=== PATIENT | female | born 1995 | race Two or more races ===

== ENCOUNTER 2024-01-13 14:15 | Observation (INO) | payer BC ==
[~2024-01-13] VITALS: Ht 172.7 cm; Wt 113.4 kg
[2024-01-13] MEDS: LACTATED RINGER'S 1,000 ML IV ONE (17:03)
== END 2024-01-13 17:55 | disposition home or self-care (01) ==
LOC: LDRP 14:15 → UNDOADMOB 14:15 → LDRP 15:49 → UNDODISOB 17:55
PROVIDERS: ADMIT Obstetrics & Gynecology; ATTEND Obstetrics & Gynecology
DX: O60.03 Preterm labor without delivery, third trimester (principal); Z3A.36 36 weeks gestation of pregnancy
CPT/HCPCS: 59025; 76818; 81002; 94760; 96360; 96361; G0378

== ENCOUNTER 2024-01-19 14:53 | Observation (INO) | payer BC ==
[2024-01-19 17:31] LABS: Alanine Aminotransferase 20 U/L (7-40); Albumin 3.6 g/dL (3.2-4.8); Alkaline Phosphatase 138 U/L (46-116); Anion Gap 10 (5-15); Aspartate Aminotransferase 16 U/L (13-40); Calcium 9.2 mg/dL (8.7-10.4); Carbon Dioxide 20 mmol/L (20-30); Chloride 107 mmol/L (98-107); Glucose 70 mg/dL (74-106); Potassium 3.9 mmol/L (3.5-5.1); Sodium 137 mmol/L (136-145); Uric Acid 4.2 mg/dL (3.1-7.8)
[2024-01-19 17:32] LABS: Basophils # (auto) 0 10 ^3/uL (0-0.2); Basophils % (auto) 0.1 % (0.0-2.0); Bilirubin, Total 0.5 mg/dL (0.2-1.0); Monocytes # (auto) 0.5 10 ^3/uL (0-1.3); Neutrophils # (auto) 7.9 10 ^3/uL (1.6-8.6); Total Protein 6.3 g/dL (5.7-8.2)
[2024-01-19 17:35] LABS: Eosinophils # (auto) 0 10 ^3/uL (0-0.8); Eosinophils % (auto) 0.4 % (0.0-7.0); Hematocrit 33.8 % (36.0-46.0); Hemoglobin 11.1 g/dL (12.2-16.2); Lymphocytes # (auto) 1.7 10 ^3/uL (0.4-5.4); Mean Corpuscular Hemoglobin 26.4 pg (28.0-32.0); Mean Corpuscular Hgb Conc. 32.7 g/dL (32.0-36.0); Mean Corpuscular Volume 80.8 fL (80.0-100.0); Monocytes % (auto) 5.1 % (0.0-12.0); Neutrophils % (auto) 77.4 % (37.0-80.0); Nucleated Red Blood Cells % 0.1 %; Red Blood Cells 4.19 10^6/uL (4.0-5.20); Red Cell Distribution Width 16.6 % (11.8-14.3); White Blood Cell 10.2 10^3/uL (4.4-10.8)
[2024-01-19 17:43] LABS: BUN/Creatinine Ratio 9.1 (10.0-20.0); Blood Urea Nitrogen < 5 mg/dL (9-23)
[2024-01-19 17:49] LABS: Urine Amorphous Crystal FEW /hpf (None Seen); Urine Bacteria FEW /hpf (None Seen); Urine Blood Negative /uL (Negative); Urine Clarity Turbid (Clear); Urine Color Colorless (Yellow); Urine Protein, UAD Negative (Negative); Urine Specific Gravity 1.001 (1.001-1.035); Urine Urobilinogen Normal (Negative); Urine WBC 7 /hpf (0 - 5); Urine pH 6.5 (5.0-9.0)
[2024-01-19 17:50] LABS: INR 0.98 (0.9-1.15); Partial Thromboplastin Time 24.8 SEC (24.5-34.5); Prothrombin Time 10.4 sec (9.3-11.8)
[2024-01-19 18:02] LABS: Protein, Urine < 6.0 mg/dL (0.0-11.9)
[2024-01-19 18:05] LABS: Creatinine, Urine 10.78 mg/dL (30.0-125.0); Urine Protein/Creatinine Ratio 0.56
== END 2024-01-19 19:10 | disposition home or self-care (01) ==
LOC: LDRP 14:53
PROVIDERS: ADMIT Obstetrics & Gynecology; ATTEND Obstetrics & Gynecology
DX: O13.3 Gestational [pregnancy-induced] hypertension without significant proteinuria, third trimester (principal); Z3A.37 37 weeks gestation of pregnancy
CPT/HCPCS: 36415; 59025; 76818; 80053; 81001; 81002; 82570; 84156; 84550; 85025; 85610; 85730; G0378

== ENCOUNTER 2024-01-21 10:55 | Observation (INO) | payer BC ==
[2024-01-21 12:14] LABS: Urine Bacteria FEW /hpf (None Seen); Urine Blood TRACE /uL (Negative); Urine Clarity Turbid (Clear); Urine Color Colorless (Yellow); Urine Protein, UAD Negative (Negative); Urine Specific Gravity 1.002 (1.001-1.035); Urine Urobilinogen Normal (Negative); Urine WBC 104 /hpf (0 - 5); Urine pH 6.5 (5.0-9.0)
[2024-01-21] MEDS ORDERED: PREN-96 PO (12:20)
[2024-01-21 12:23] LABS: Protein, Urine 11.6 mg/dL (0.0-11.9)
[2024-01-21 12:23] LABS: Protein, Urine < 6.0 mg/dL (0.0-11.9)
[2024-01-21 12:26] LABS: Urine Protein/Creatinine Ratio 0.36
[2024-01-21 13:07] LABS: 24 Hr. Total Protein, Urine 330.6 mg/24 Hr (<149.1)
== END 2024-01-21 15:17 | disposition home or self-care (01) ==
LOC: LDRP 10:55 → UNDOADMOB 10:55 → LDRP 11:55
PROVIDERS: ADMIT Obstetrics & Gynecology; ATTEND Obstetrics & Gynecology
DX: O13.3 Gestational [pregnancy-induced] hypertension without significant proteinuria, third trimester (principal); Z3A.37 37 weeks gestation of pregnancy
CPT/HCPCS: 59025; 76818; 81001; 81002; 82570; 84156; 94760; G0378

== ENCOUNTER 2024-01-24 08:00 | Observation (INO) | payer BC ==
[~2024-01-24 08:00] MED LIST: PREN-96 PO
[2024-01-24 11:19] LABS: Protein, Urine 12.7 mg/dL (0.0-11.9)
[2024-01-24 11:22] LABS: Creatinine, Urine 90.89 mg/dL (30.0-125.0); Urine Protein/Creatinine Ratio 0.14
== END 2024-01-24 09:44 | disposition home or self-care (01) ==
LOC: LDRP 08:00
PROVIDERS: ADMIT Obstetrics & Gynecology; ATTEND Obstetrics & Gynecology
DX: O13.3 Gestational [pregnancy-induced] hypertension without significant proteinuria, third trimester (principal); O26.893 Other specified pregnancy related conditions, third trimester; R51.9 Headache, unspecified; Z3A.37 37 weeks gestation of pregnancy; Z79.899 Other long term (current) drug therapy
CPT/HCPCS: 59025; 76818; 81002; 82570; 84156; 94760; G0378

== ENCOUNTER 2024-01-26 12:54 | Observation (INO) | payer BC ==
[2024-01-26] MEDS ORDERED: FAMO20TA10 PO (16:15)
== END 2024-01-26 15:45 | disposition home or self-care (01) ==
LOC: LDRP 12:54
PROVIDERS: ADMIT Obstetrics & Gynecology; ATTEND Obstetrics & Gynecology
DX: O13.3 Gestational [pregnancy-induced] hypertension without significant proteinuria, third trimester (principal); O62.9 Abnormality of forces of labor, unspecified; Z3A.38 38 weeks gestation of pregnancy
CPT/HCPCS: 59025; 76818; 81002; 94760; G0378

== ENCOUNTER 2024-01-29 10:54 | Observation (INO) | payer BC ==
[~2024-01-29 10:54] MED LIST changes: +FAMO20TA10 PO
[2024-01-29 12:11] LABS: Basophils # (auto) 0 10 ^3/uL (0-0.2); Basophils % (auto) 0.1 % (0.0-2.0); Eosinophils # (auto) 0.1 10 ^3/uL (0-0.8); Eosinophils % (auto) 0.6 % (0.0-7.0); Hematocrit 33.8 % (36.0-46.0); Hemoglobin 11.2 g/dL (12.2-16.2); Lymphocytes # (auto) 1.6 10 ^3/uL (0.4-5.4); Mean Corpuscular Hgb Conc. 33.2 g/dL (32.0-36.0); Mean Corpuscular Volume 81.4 fL (80.0-100.0); Monocytes # (auto) 0.6 10 ^3/uL (0-1.3); Monocytes % (auto) 5.5 % (0.0-12.0); Neutrophils % (auto) 77.8 % (37.0-80.0); Nucleated Red Blood Cells % 0.1 %; Red Blood Cells 4.16 10^6/uL (4.0-5.20); Red Cell Distribution Width 16.8 % (11.8-14.3); White Blood Cell 10.3 10^3/uL (4.4-10.8)
[2024-01-29 12:12] LABS: Urine Bacteria FEW /hpf (None Seen); Urine Blood 1+ /uL (Negative); Urine Color Yellow (Yellow); Urine Mucus FEW (None Seen); Urine Protein, UAD 1+ (Negative); Urine Specific Gravity 1.031 (1.001-1.035); Urine Urobilinogen Normal (Negative); Urine WBC 16 /hpf (0 - 5)
[2024-01-29 12:13] LABS: Urine Clarity Hazy (Clear)
[2024-01-29 12:21] LABS: Protein, Urine 70.1 mg/dL (0.0-11.9)
[2024-01-29 12:28] LABS: Alanine Aminotransferase 18 U/L (7-40); Albumin 3.5 g/dL (3.2-4.8); Alkaline Phosphatase 145 U/L (46-116); Anion Gap 8 (5-15); Aspartate Aminotransferase 15 U/L (13-40); BUN/Creatinine Ratio 7.7 (10.0-20.0); Blood Urea Nitrogen 5 mg/dL (9-23); Calcium 9.2 mg/dL (8.7-10.4); Carbon Dioxide 20 mmol/L (20-30); Chloride 108 mmol/L (98-107); Glucose 76 mg/dL (74-106); Potassium 4.1 mmol/L (3.5-5.1); Sodium 136 mmol/L (136-145); Uric Acid 4.4 mg/dL (3.1-7.8)
[2024-01-29 12:29] LABS: Bilirubin, Total 0.4 mg/dL (0.2-1.0); Total Protein 6.7 g/dL (5.7-8.2)
[2024-01-29 12:32] LABS: Creatinine, Urine 278.31 mg/dL (30.0-125.0); Urine Protein/Creatinine Ratio 0.25
[2024-01-29 12:38] LABS: INR 0.97 (0.9-1.15); Partial Thromboplastin Time 24.5 SEC (24.5-34.5); Prothrombin Time 10.3 sec (9.3-11.8)
== END 2024-01-29 14:02 | disposition home or self-care (01) ==
LOC: LDRP 10:54
PROVIDERS: ADMIT Obstetrics & Gynecology; ATTEND Obstetrics & Gynecology
DX: O13.3 Gestational [pregnancy-induced] hypertension without significant proteinuria, third trimester (principal); O26.893 Other specified pregnancy related conditions, third trimester; R12 Heartburn; Z3A.38 38 weeks gestation of pregnancy
CPT/HCPCS: 36415; 59025; 76818; 80053; 81001; 81002; 82570; 84156; 84550; 85025; 85379; 85384; 85610; 85730; 94760; G0378

== ENCOUNTER 2024-02-02 14:52 | Inpatient (IN) | payer BC ==
[~2024-02-02] VITALS: Ht 172.7 cm; Wt 113.4 kg
[2024-02-02 00:20] VITALS: O2SAT 98
[2024-02-02] MEDS ORDERED: LIDOCAINE 2%HCL (LOCAL ANESTH.) INJ 20ML MDV IJ PRN (16:30)
[2024-02-02] MEDS ORDERED: LACTATED RINGER'S 1,000 ML IV SCH (16:30)
[2024-02-02 17:01] LABS: Basophils # (auto) 0 10 ^3/uL (0-0.2); Basophils % (auto) 0.2 % (0.0-2.0); Eosinophils # (auto) 0 10 ^3/uL (0-0.8); Eosinophils % (auto) 0.4 % (0.0-7.0); Hematocrit 33.7 % (36.0-46.0); Hemoglobin 11.2 g/dL (12.2-16.2); Lymphocytes % (auto) 20.1 % (10.0-50.0); Mean Corpuscular Hemoglobin 27.1 pg (28.0-32.0); Mean Corpuscular Hgb Conc. 33.1 g/dL (32.0-36.0); Mean Corpuscular Volume 81.7 fL (80.0-100.0); Monocytes # (auto) 0.7 10 ^3/uL (0-1.3); Neutrophils # (auto) 7.3 10 ^3/uL (1.6-8.6); Neutrophils % (auto) 72.3 % (37.0-80.0); Nucleated Red Blood Cells % 0.1 %; Platelet Count (auto) 267 10^3/uL (140-450); Red Blood Cells 4.13 10^6/uL (4.0-5.20); Red Cell Distribution Width 17.4 % (11.8-14.3); White Blood Cell 10.1 10^3/uL (4.4-10.8)
[2024-02-02 17:09] LABS: Urine Bacteria FEW /hpf (None Seen); Urine Blood Negative /uL (Negative); Urine Clarity Turbid (Clear); Urine Color Colorless (Yellow); Urine Protein, UAD Negative (Negative); Urine Specific Gravity 1.005 (1.001-1.035); Urine Urobilinogen Normal (Negative); Urine WBC 10 /hpf (0 - 5)
[2024-02-02 17:16] LABS: INR 0.97 (0.9-1.15); Partial Thromboplastin Time 24.1 SEC (24.5-34.5); Prothrombin Time 10.3 sec (9.3-11.8)
[2024-02-02 17:18] LABS: Amphetamine Screen, Urine Neg (NEGATIVE); Barbiturate Scree,Urine Neg (NEGATIVE); Benzodiazephine Screen, Urine Neg (NEGATIVE); Cannabinoid Screen, Urine Neg (NEGATIVE); Cocaine Screen, Urine Neg (NEGATIVE); Opiate Scree,Urine Neg (NEGATIVE); Phencyclidine Screen, Urine Neg (NEGATIVE)
[2024-02-02 17:20] LABS: Alanine Aminotransferase 13 U/L (7-40); Albumin 3.8 g/dL (3.2-4.8); Alkaline Phosphatase 156 U/L (46-116); Anion Gap 7 (5-15); Aspartate Aminotransferase 17 U/L (13-40); Bilirubin, Total 0.5 mg/dL (0.2-1.0); Blood Urea Nitrogen 6 mg/dL (9-23); Calcium 9.7 mg/dL (8.7-10.4); Carbon Dioxide 23 mmol/L (20-30); Chloride 108 mmol/L (98-107); Glucose 72 mg/dL (74-106); Potassium 4.2 mmol/L (3.5-5.1); Sodium 138 mmol/L (136-145); Total Protein 6.6 g/dL (5.7-8.2)
[2024-02-02 17:27] LABS: Protein, Urine < 6.0 mg/dL (0.0-11.9)
[2024-02-02 17:29] LABS: Creatinine, Urine 37.48 mg/dL (30.0-125.0); Urine Protein/Creatinine Ratio 0.16
[2024-02-02 17:31] LABS: Uric Acid 4.9 mg/dL (3.1-7.8)
[2024-02-02] MEDS ORDERED: miSOPROStol 50 MCG per PRE-CUT 1/2 TAB PO PRN (18:45)
[2024-02-02] MEDS ORDERED: ACETAMINOPHEN 500 MG TAB PO PRN (19:00)
[2024-02-02] MEDS: miSOPROStol 50 MCG per PRE-CUT 1/2 TAB PO PRN (19:30)
[2024-02-02] MEDS: TERBUTALINE SULFATE 1 MG/ML 1ML VIAL SC ONE (22:21)
[2024-02-02] MEDS ORDERED: TERBUTALINE SULFATE 1 MG/ML 1ML VIAL SC SCH (22:30)
[2024-02-02] MEDS: ceFAZolin 2 GM/D5W50ml 50 ML IV ONE (22:30)
[2024-02-02] MEDS ORDERED: DexAMETHasone SOD PHOS 10MG/1ML VIAL INJ ONE (22:48)
[2024-02-02] MEDS ORDERED: ONDANSETRON HCL 4 MG/2 ML VIAL ONE (22:48)
[2024-02-02] MEDS ORDERED: oxyTOCIN 10 UNIT/ML 10ML VIAL ONE (22:48)
[2024-02-02] MEDS ORDERED: fentaNYL CITRATE 100 MCG/2 ML VL ONE (22:49)
[2024-02-02] MEDS ORDERED: MORPHINE SULF PF 5 MG/10 ML VIAL ONE (22:49)
[2024-02-02] MEDS ORDERED: SODIUM CHLORIDE LOCK 10 ML ONE ×2 (22:50→23:26)
[2024-02-02] MEDS ORDERED: ePHEDrine SULFATE 50 MG/ML AMP ONE (22:50)
[2024-02-02] MEDS: ceFAZolin 1GM VL ONE (23:01)
[2024-02-02] MEDS ORDERED: PHENYLEPHRINE HCL 10 MG/ML VL ONE (23:26)
[2024-02-03] VITALS (19 sets, daily range): BP systolic 97–132; BP diastolic 51–72; PULSE 52–104; RESP 14–20; TEMP 97.8–98.6; O2SAT 94–99
[2024-02-03] MEDS ORDERED: KETOROLAC TROMETH 30 MG/ML 1ML VIAL IV PRN (01:45)
[2024-02-03] MEDS ORDERED: ACETAMINOPHEN IV 1000 MG/100ML (10MG/ML) IV SCH (01:45)
[2024-02-03] MEDS: METOCLOPRAMIDE HCL 5MG/ml INJ 2ml VIAL IV PRN (02:17)
[2024-02-03] MEDS: diphenhdrAMINE HCL 50 MG/1 ML VL IV PRN (03:46)
[2024-02-03] MEDS: LACTATED RINGER'S 1,000 ML IV SCH (04:47)
[2024-02-03 07:40] LABS: Basophils # (auto) 0 10 ^3/uL (0-0.2); Basophils % (auto) 0.1 % (0.0-2.0); Eosinophils # (auto) 0 10 ^3/uL (0-0.8); Hemoglobin 10.8 g/dL (12.2-16.2); Lymphocytes % (auto) 5.5 % (10.0-50.0); Mean Corpuscular Hemoglobin 25.9 pg (28.0-32.0); Monocytes # (auto) 0.3 10 ^3/uL (0-1.3); Monocytes % (auto) 1.6 % (0.0-12.0); Neutrophils % (auto) 92.8 % (37.0-80.0)
[2024-02-03 07:42] LABS: Hematocrit 33.9 % (36.0-46.0); Mean Corpuscular Hgb Conc. 31.8 g/dL (32.0-36.0); Mean Corpuscular Volume 81.3 fL (80.0-100.0); Neutrophils # (auto) 16.9 10 ^3/uL (1.6-8.6); Platelet Count (auto) 250 10^3/uL (140-450); Red Blood Cells 4.16 10^6/uL (4.0-5.20); Red Cell Distribution Width 16.8 % (11.8-14.3); White Blood Cell 18.2 10^3/uL (4.4-10.8)
[2024-02-03] MEDS ORDERED: DOCU-94 PO (07:42)
[2024-02-03] MEDS ORDERED: HYDR-4902 PO (07:42)
[2024-02-03] MEDS ORDERED: IBUP-1456 PO (07:42)
[2024-02-03] MEDS: ceFAZolin 1GM/50ML 50 ML IV SCH (08:16)
[2024-02-03] MEDS: LACT. RINGERS/OXYTOCIN 20UNITS 500 ML IV ONE ×2 (08:52)
[2024-02-03] MEDS: ACETAMINOPHEN IV 1000 MG/100ML (10MG/ML) IV PRN (14:38)
[2024-02-03] MEDS: DERMOPLAST 60ML BOTTLE TOP PRN (14:58)
[2024-02-03] MEDS: PHISODERM TOP SOLN 240ML BTL TOP PRN (14:58)
[2024-02-03] MEDS: WITCH HAZEL-GLYCERIN PAD TOP PRN (14:58)
[2024-02-04] MEDS ORDERED: BISACODYL 10 MG RECT SUPP PR PRN (00:30)
[2024-02-04] MEDS ORDERED: FER325T PO (00:54)
[2024-02-04] MEDS ORDERED: IBUP-1456 PO (00:54)
[2024-02-04 03:12] VITALS: BP 121/71; PULSE 72; RESP 16; TEMP 98.1; O2SAT 96
[2024-02-04] MEDS: IBUPROFEN 800 MG TAB PO PRN (03:22)
[2024-02-04] MEDS: SIMETHICONE 80 MG CHEWABLE TABLET PO SCH (05:59)
[2024-02-04 06:06] LABS: RPR Non Reactive (Non Reactive)
[2024-02-04 06:50] VITALS: BP 106/57; PULSE 58; RESP 16; TEMP 98.6; O2SAT 98
[2024-02-04] MEDS ORDERED: DOCUSATE CALCIUM 240 MG CAP PO SCH (10:00)
[2024-02-04] MEDS: DOCUSATE SOD 100 MG CAP PO SCH (10:52)
[2024-02-04] MEDS: FERROUS SULFATE 325mg EC TAB PO SCH (10:52)
[2024-02-04] MEDS: HYDROcodone-ACET 5/325MG TAB PO PRN ×2 (10:53→22:40)
[2024-02-04 11:00] VITALS: BP 130/70; PULSE 94; RESP 15; TEMP 97.7; O2SAT 95
[2024-02-04 15:08] VITALS: BP 120/59; PULSE 85; RESP 16; TEMP 98.6; O2SAT 98
[2024-02-04 19:20] VITALS: BP 119/61; PULSE 77; RESP 16; TEMP 98.3; O2SAT 98
[2024-02-04 22:41] VITALS: BP 130/71; PULSE 85; RESP 16; TEMP 98; O2SAT 98
[2024-02-05 03:00] VITALS: BP 117/59; PULSE 75; RESP 16; TEMP 98.2; O2SAT 97
[2024-02-05] MEDS: TETANUS-DIPTH-ACEL PERTUSSIS 0.5ML SYR Tdap IM ONE (04:44)
[2024-02-05 07:20] VITALS: BP 130/71; PULSE 86; RESP 16; TEMP 98.4; O2SAT 97
== END 2024-02-05 09:28 | disposition home or self-care (01) | DRG 787 ==
LOC: LDRP 14:52 → OBSVTOIN 16:20 → LDRP 02-03 04:16
PROVIDERS: ADMIT Obstetrics & Gynecology; ATTEND Obstetrics & Gynecology
PROC: 10D00Z1 Extraction of Products of Conception, Low, Open Approach (ICD-10-PCS; principal; 2024-02-02 23:09)
DX: O14.94 Unspecified pre-eclampsia, complicating childbirth (principal); D62 Acute posthemorrhagic anemia; O69.81X0 Labor and delivery complicated by cord around neck, without compression, not applicable or unspecified; O99.214 Obesity complicating childbirth; O76 Abnormality in fetal heart rate and rhythm complicating labor and delivery; Z37.0 Single live birth; Z3A.39 39 weeks gestation of pregnancy; E66.01 Morbid (severe) obesity due to excess calories; O90.81 Anemia of the puerperium; T47.1X5A Adverse effect of other antacids and anti-gastric-secretion drugs, initial encounter; Y92.239 Unspecified place in hospital as the place of occurrence of the external cause
CPT/HCPCS: 36415; 59025; 76818; 80053; 80307; 81001; 81002; 82570; 84156; 84550; 85025; 85610; 85730; 86592; 86803; 86850; 86900; 86901; 90715; 94760; 94762; 96360; 96361; 96372; 96374; 96375; G0378; J0131; J0690; J1100; J2405; J2590

== ENCOUNTER 2024-07-03 00:50 | Emergency (ER) | payer BC ==
[~2024-07-03] VITALS: Ht 172.7 cm; Wt 113.0 kg
[~2024-07-03 00:50] MED LIST changes: +DOCU-94 PO; -FAMO20TA10 PO; +FER325T PO; +HYDR-4902 PO; +IBUP-1456 PO
--- NOTE | 2024-07-03 01:09 | ECG ---
[facility] Test Date: 2024-07-03 Test Time: 01:03:31 Pat Name: DANNIE TALBERT Department: ER Room: Gender: F Hydrologist: VANCE : 1995 Requested By: NISHA GUDINO Order Number: [id number] Reading MD: Yunier Doyle Measurements Intervals [place] Rate: 77 P: 58 AL: 141 QRS: 54 QRSD: 96 T: 7 QT: 384 QTc: 435 Interpretive Statements Sinus rhythm Electronically Signed On 07-10-2024 14:52:20 PST by Yunier Doyle Please click the below link to view image of tracing.
--- NOTE | 2024-07-03 01:49 | ED.PDOC ---
History of Present Illness HPI Comments 28-year-old female who came to emergency room due to dizziness. Patient denies any medical problems. States she was painting at home, when she developed sudden onset dizziness. Patient went to the bathroom, having multiple bouts of nausea and vomiting and diarrhea. Persistence of dizziness, describe a spinning, prompted patient to come to the emergency room Chief Complaint: Dizziness Time Seen by MD: 01:48 Reviewed Notes: Nurses Notes Allergies: Coded Allergies: NO KNOWN ALLERGIES (Unverified , 11/16/15) Home Meds Active Scripts Ferrous Sulfate (Ferrous Sulfate) 325 Mg Tab, 325 MG PO EOD for 30 Days, #30 TAB 3 Refills Prov:FRANCO SAWANTRUBEN [facility] 02/04/24 Ibuprofen (Ibuprofen) 800 Mg Tab, 800 MG PO TID PRN for 20 Days, #60 TAB Prov:SAVANAELVIEGREGORIO [facility] 02/04/24 Hydrocodone-Acetaminophen (Hydrocodone Bitartrate/AC 5-325 mg) 1 Tab Tab, 1 TAB PO Q6HPRN PRN for 7 Days, #28 TAB Prov:ROSANNA PORTILLO 02/03/24 Docusate Sodium (Colace) 100 Mg Cap, 1 CAP PO BID, #60 CAP 2 Refills Prov:ROSANNA PORTILLO 02/03/24 Reported Medications Vit W/ Ferrous Fumara ( One Daily) Daily Tab, 1 TAB PO DAILY, #90 TAB 3 Refills 01/21/24 Information Source: Patient Mode of Arrival: Ambulatory Severity: Moderate Timing: Hours Duration: Intermittent Review of Systems REVIEW OF SYSTEMS: No fever, no chills, or fatigue HEENT: No sore throat, no earache, no congestion, no neck pain. Cardiac: No chest pain. No palpitations. Lungs: No shortness of breath, no cough. GI:(+) nausea, vomiting, diarrhea, no constipation, no abdominal pain : No dysuria, frequency, or urgency. No hematuria. Musculoskeletal: No joint pain , no joint swelling, no extremity edema. Skin: No rash, no itching. Neuro: No headache, (+) dizziness, no weakness Vital Signs Vital Signs Date Time Temp Pulse Resp B/P (MAP) Pulse Ox O2 Delivery O2 Flow Rate FiO2 07/03/24 05:56 87 14 110/72 (85) 98 07/03/24 05:03 Room Air* 0 21 07/03/24 05:01 98.0 98.0 Physical Exam General: Awake, alert and oriented. No acute distress. Skin: Skin in warm, dry and intact. Appropriate color for ethnicity. Nailbeds pink with no cyanosis. HEENT: The head is normocephalic and atraumatic. Conjunctivae are clear without exudates or hemorrhage. Sclera is non-icteric. EOM are intact. Right nystagmus noted. Eyelids are normal in appearance without swelling or lesions. Oral mucosa is pink and moist Neck: The neck is supple with normal range of motion. No JVD. Cardiac: Heart rate and rhythm are normal. No murmurs, gallops, or rubs are auscultated. Respiratory: No signs of respiratory distress. Lung sounds are clear in all lobes bilaterally without rales, ronchi, or wheezes. Abdominal: Abdomen is soft, non-tender without distention. Bowel sounds are present and normoactive in all four quadrants. Extremities: Upper and lower extremities are atraumatic in appearance without deformity or edema. Neurological: The patient is awake, alert and oriented to person, place, and time with normal speech. Speech is clear. There is no facial asymmetry. Normal [id number] test. Romberg is negative. Psychiatric: Appropriate mood and affect. Good judgement and insight. No visual or auditory hallucinations. Past Medical History PAST MEDICAL HISTORY: Denies Surgical History: Denies all surgeries BOOKING CLERK History: No Pertinent BOOKING CLERK History Family History Family History: Reviewed,noncontributory to illness Social History Smoker: Non-Smoker Alcohol: Denies ETOH Use Drugs: Denies Drug Use Lives In: Home Was a procedure done? Was a procedure done?: No EKG EKG : Comments Independent interpretation: Sinus rhythm at a rate of 77, no STEMI. Differential Dx Considerations may include: Anemia. Electrolyte imbalance. Vertigo. Gastroenteritis. Dehydration X-Ray, Labs, Meds, VS Vital Signs Date Time Temp Pulse Resp B/P (MAP) Pulse Ox O2 Delivery O2 Flow Rate FiO2 07/03/24 05:56 87 14 110/72 (85) 98 07/03/24 05:03 90 14 97 Room Air* 0 21 07/03/24 05:01 98.0 90 14 115/67 (83) 97 98.0 07/03/24 01:03 77 07/03/24 00:58 98.3 83 20 130/91 (104) 99 Lab Test 07/03/24 02:06 07/03/24 00:57 Range/Units White Blood Count 10.7 4.4-10.8 10^3/uL Red Blood Count 4.38 4.0-5.20 10^6/uL Hemoglobin 12.6 12.2-16.2 g/dL Hematocrit 37.1 36.0-46.0 % Mean Corpuscular Volume 84.7 80.0-100.0 fL Mean Corpuscular Hemoglobin 28.8 28.0-32.0 pg Mean Corpuscular Hemoglobin Concent 34.0 32.0-36.0 g/dL Red Cell Distribution Width 14.1 11.8-14.3 % Platelet Count 334 140-450 10^3/uL Mean Platelet Volume 7.8 6.9-10.8 fL Neutrophils (%) (Auto) 81.1 H 37.0-80.0 % Lymphocytes (%) (Auto) 14.5 10.0-50.0 % Monocytes (%) (Auto) 3.5 0.0-12.0 % Eosinophils (%) (Auto) 0.5 0.0-7.0 % Basophils (%) (Auto) 0.4 0.0-2.0 % Neutrophils # (Auto) 8.7 H 1.6-8.6 10 ^3/uL Lymphocytes # (Auto) 1.6 0.4-5.4 10 ^3/uL Monocytes # (Auto) 0.4 0-1.3 10 ^3/uL Eosinophils # (Auto) 0.1 0-0.8 10 ^3/uL Basophils # (Auto) 0 0-0.2 10 ^3/uL Nucleated Red Blood Cells 0.0 % Sodium Level 139 136-145 mmol/L Potassium Level 4.2 3.5-5.1 mmol/L Chloride Level 107 98-107 mmol/L Carbon Dioxide Level 26 20-31 mmol/L Anion Gap 6 5-15 Blood Urea Nitrogen 10 9-23 mg/dL Creatinine 0.81 0.550-1.02 mg/dL Glomerular Filtration Rate Calc 100 >90 mL/min BUN/Creatinine Ratio 12.3 10.0-20.0 Serum Glucose 126 H 74-106 mg/dL Calcium Level 10.0 8.7-10.4 mg/dL Magnesium Level 2.0 1.6-2.6 mg/dL Total Bilirubin 0.5 0.2-1.0 mg/dL Aspartate Amino Transferase (AST) 22 13-40 U/L Alanine Aminotransferase (ALT) 51 H 7-40 U/L Alkaline Phosphatase 110 46-116 U/L Troponin I High Sensitivity < 3 L </=34 ng/L Total Protein 7.7 5.7-8.2 g/dL Albumin 4.6 3.2-4.8 g/dL Lipase 57 H 12-53 U/L POC Glucose 129 H 70-106 mg/dl Current Medications Medications (Trade) Dose Ordered Sig/Flora Route Start Time Stop Time Status Last Admin Meclizine HCl (Antivert Tablet) 50 mg ONCE ONCE PO 07/03/24 01:45 07/03/24 01:47 DC 07/03/24 04:54 Ondansetron HCl (Zofran) 4 mg ONCE ONCE IV 07/03/24 02:45 07/03/24 02:46 DC 07/03/24 04:54 Sodium Chloride 1,000 ml @ 1,000 mls/hr Q1H ONCE IV 07/03/24 02:45 07/03/24 03:44 DC 07/03/24 04:54 Time of 1ST Reevaluation: 01:45 Reevaluation 1ST: Unchanged Patient Education/Counseling: Diagnosis, Treatment Family Education/Counseling: No Family Present Departure 1 Departure Time of Disposition: 05:23 Impression: Primary Impression: Dizziness Additional Impression: Vertigo Disposition: 01 HOME / SELF CARE / HOMELESS Condition: Stable Additional Instructions: ED DISCHARGE INSTRUCTIONS Instructions: Please read all instructions provided in this packet carefully. Although you have been discharged from the Emergency Department, this does not mean that you have a "clean bill of health". No definitive diagnosis for your symptoms has been made today. It is possible that you are in the process of developing a serious illness. This is why you must return to the ED without fail if any new or worsening symptoms (especially if your symptoms include chest pain, trouble breathing, abdominal pain, fever, headache, confusion, trouble seeing, or trouble walking) It is also very important that you see a primary care doctor within the next 3-5 days to follow up. If you are unable to get an appointment, return to the ED for re-evaluation. Vertigo: Care Instructions Overview Vertigo is the feeling that you or your surroundings are moving when there is no actual movement. It is often described as a feeling of spinning, whirling, falling, or tilting. Vertigo may make you vomit or feel nauseated. You may have trouble standing or walking and may lose your balance. Vertigo is often related to an inner ear problem, but it can have other more serious causes. If vertigo continues, you may need more tests to find its cause. Follow-up care is a smith part of your treatment and safety. Be sure to make and go to all appointments, and call your doctor if you are having problems. It's also a good idea to know your test results and keep a list of the medicines you take. How can you care for yourself at home? Do not lie flat on your back. Prop yourself up slightly. This may reduce the spinning feeling. Keep your eyes open. Move slowly to decrease your chance of falling. If your doctor recommends medicine, take it exactly as directed. Do not drive while you are having vertigo. Certain exercises, called Hernandez-Daroff exercises, can help decrease vertigo. To do Hernandez-Daroff exercises: Sit on the edge of a bed or sofa and quickly lie down on the side that causes the worst vertigo. Lie on your side with your ear down. Stay in this position for at least 30 seconds or until the vertigo goes away. Sit up. If this causes vertigo, wait for it to stop. Repeat the procedure on the other side. Repeat this 10 times. Do these exercises 2 times a day until the vertigo is gone. When should you call for help? Call 911 anytime you think you may need emergency care. For example, call if: You passed out (lost consciousness). You have sudden dizziness that doesn't get better. You have dizziness along with symptoms of a heart attack. These may include: Chest pain or pressure, or a strange feeling in the chest. Sweating. Shortness of breath. Nausea or vomiting. Pain, pressure, or a strange feeling in the back, neck, jaw, or upper belly or in one or both shoulders or arms. Lightheadedness or sudden weakness. A fast or irregular heartbeat. You have symptoms of a stroke. These may include: Sudden numbness, tingling, weakness, or loss of movement in your face, arm, or leg, especially on only one side of your body. Sudden vision changes. Sudden trouble speaking. Sudden confusion or trouble understanding simple statements. Sudden problems with walking or balance. A sudden, severe headache that is different from past headaches. Call your doctor now or seek immediate medical care if: Vertigo occurs with a fever, a headache, or ringing in your ears. You have new or increased nausea and vomiting. Your vertigo gets worse or happens more often. Watch closely for changes in your health, and be sure to contact your doctor if: You do not get better as expected. Credits for Vertigo: Care Instructions Current as of: April 17, 2024 Author: [employer] Staff Clinical Review Board All [employer] education is reviewed by a team that includes physicians, nurses, advanced practitioners, registered dieticians, and other healthcare professionals. Comments 28-year-old female who presented to the emergency department with vertigo symptoms. Patient reports significant improvement of her symptoms during treatment in the emergency department. Lab and imaging results, not urgently actionable. Patient felt stable for discharge home to follow up with primary care provider for further evaluation. I reviewed the following notes from the pt's past medical encounters: N/A The following tests were ordered, and results were reviewed by me: (See diagnostic results section) The following test were independently interpreted by me: EKG Additional information was gathered from interviewing the following independent historians: (N/A) I reviewed and agreed with the following test results read by other providers: N/A I discussed treatments and results with medical personnel and: N/A Decision regarding hospitalization or escalation of hospital level of care: Risks and benefits of admission for further treatment of patient's condition was considered however due to patient's stable condition patient will be discharged to follow up closely or return to care for worsening of condition or inability to follow up. Critical Care Note Critical Care Time?: No Stability Stability form required: No Heart Score Heart Score: Heart Score Response (Comments) Value History N/A 0 EKG N/A 0 Age N/A 0 Risk Factors N/A 0 Troponin N/A 0 Total 0 I personally scribed for NISHA GUDINO MD ([email or web address]) on 07/03/24 at 01:49. Electronically submitted by Han Barbosa ([email or web address]). NISHA GUDINO MD Jul 03, 2024 01:49
[2024-07-03 02:44] LABS: Anion Gap 6 (5-15); BUN/Creatinine Ratio 12.3 (10.0-20.0); Basophils # (auto) 0 10 ^3/uL (0-0.2); Basophils % (auto) 0.4 % (0.0-2.0); Eosinophils # (auto) 0.1 10 ^3/uL (0-0.8); Eosinophils % (auto) 0.5 % (0.0-7.0); Hematocrit 37.1 % (36.0-46.0); Hemoglobin 12.6 g/dL (12.2-16.2); Lymphocytes # (auto) 1.6 10 ^3/uL (0.4-5.4); Lymphocytes % (auto) 14.5 % (10.0-50.0); Mean Corpuscular Hemoglobin 28.8 pg (28.0-32.0); Mean Corpuscular Volume 84.7 fL (80.0-100.0); Monocytes # (auto) 0.4 10 ^3/uL (0-1.3); Monocytes % (auto) 3.5 % (0.0-12.0); Neutrophils # (auto) 8.7 10 ^3/uL (1.6-8.6); Neutrophils % (auto) 81.1 % (37.0-80.0); Platelet Count (auto) 334 10^3/uL (140-450); Potassium 4.2 mmol/L (3.5-5.1); Red Blood Cells 4.38 10^6/uL (4.0-5.20); Red Cell Distribution Width 14.1 % (11.8-14.3); Sodium 139 mmol/L (136-145); White Blood Cell 10.7 10^3/uL (4.4-10.8)
[2024-07-03 02:50] LABS: Alanine Aminotransferase 51 U/L (7-40); Albumin 4.6 g/dL (3.2-4.8); Alkaline Phosphatase 110 U/L (46-116); Aspartate Aminotransferase 22 U/L (13-40); Bilirubin, Total 0.5 mg/dL (0.2-1.0); Blood Urea Nitrogen 10 mg/dL (9-23); Carbon Dioxide 26 mmol/L (20-31); Chloride 107 mmol/L (98-107); Glucose 126 mg/dL (74-106); Lipase 57 U/L (12-53); Total Protein 7.7 g/dL (5.7-8.2)
[2024-07-03] MEDS: IOHEXOL 350 MG/ML 100ML IJ ONE (04:18)
[2024-07-03] MEDS: ONDANSETRON HCL 4 MG/2 ML VIAL IV ONE (04:54)
[2024-07-03] MEDS: MECLIZINE HCL 25 MG TAB PO ONE (04:54)
[2024-07-03] MEDS: SODIUM CHLORIDE 0.9% 1,000 ML IV ONE (04:54)
[2024-07-03 05:01] VITALS: TEMP 98
[2024-07-03 05:03] VITALS: PULSE 90; RESP 14; O2SAT 97
--- NOTE | 2024-07-03 05:46 | DVH ---
INDICATION: Vertigo sudden onset COMPARISON: None TECHNIQUE: CTA head without and with intravenous contrast. CTA neck with intravenous contrast. 3D image postprocessing was performed on a dedicated workstation and images were used for interpretation and reporting. Radiation Dose Information: CT Dose: CTDI volume is 23 mGy. Dose-length product is 14 19 mGy*cm FINDINGS: CT head: There is no evidence of acute intracranial hemorrhage, extra-axial collection, mass effect, midline s hift, herniation or hydrocephalus. The ventricles, sulci and cisterns are age appropriate. The ortiz -white differentiation is intact. The visualized paranasal sinuses and mastoid air cells are clear. The surrounding soft tissues and osseous structures are unremarkable. CTA head: There is normal enhancement of the visualized distal internal carotid, anterior and middle cerebral a rteries. There is a normal anterior communicating artery complex. There are bilateral posterior com municating arteries. The vertebral, basilar, cerebellar and posterior cerebral arteries are within n ormal limits. The early parenchymal enhancement is grossly unremarkable. The visualized intracrania l venous structures are grossly unremarkable. CTA neck: The visualized thoracic aortic arch and proximal great vessels are unremarkable. The left common, internal and external carotid arteries are within normal limits. The right common, internal and external carotid arteries are within normal limits. The cervical segments of the right and left vertebral arteries are within normal limits. The limited visualized lung apices are clear. The surrounding soft tissues and osseous structures ar e otherwise unremarkable. IMPRESSION: No evidence of acute intracranial hemorrhage, mass effect or hydrocephalus. No evidence of hemodynamically significant intracranial stenosis, proximal occlusion or aneurysm. No evidence of hemodynamically significant cervical stenosis or dissection. All CT scans at this medical facility are performed using dose modulation techniques as appropriate t o a performed exam including the following: Automated exposure control was utilized; adjustment of th e MA and/or KV according to patient size; and use of iterative reconstruction technique.
[2024-07-03 05:56] VITALS: BP 110/72; PULSE 87; RESP 14; O2SAT 98
[2024-07-03] MEDS ORDERED: ALBUTEROL SULF 2.5 MG/0.5ML(0.5%) NEB SOLN ONE (11:27)
[2024-07-03] MEDS ORDERED: IPRATROPIUM BROM 0.5 MG/2.5ML INH SOL ONE (11:27)
== END 2024-07-03 05:58 | disposition home or self-care (01) ==
LOC: ER 00:50
DX: R42 Dizziness and giddiness (principal); R11.2 Nausea with vomiting, unspecified; R19.7 Diarrhea, unspecified; Z79.899 Other long term (current) drug therapy
CPT/HCPCS: 36415; 70496; 70498; 80053; 82962; 83690; 83735; 84484; 85025; 93005; 96361; 96374; 99285; J2405; J7030; J8597; Q9967